=== PATIENT | female | born 1970 | race Caucasian/White ===

== ENCOUNTER 2018-04-28 07:00 | Emergency (ER) | payer SELFPAY ==
[2018-04-28] MEDS ORDERED: 0.9 % SODIUM CHLORIDE 1,000 ML IV ONE (07:11)
[2018-04-28] MEDS ORDERED: ONDANSETRON HCL/PF 4 MG/ 2ML VIAL IVP ONE (07:11)
--- NOTE | 2018-04-28 07:16 | ED Physician Documentation ---
General Adult - HISTORIAN Historian: patient, paramedics - HPI Stated Complaint: anxiety Chief Complaint: General Adult Additional Information: Six hours of anxiety, rapid heart rate. HX anxiety attacks. She has tried walking w/o relief. Nauseated. 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 No urine output since4 0300. HX Guillain-[place], 2013?, takes methadone for fibromyalgia. Used to take Xanax but stopped ehn she had Guillain-[place]. Fourth ER visit for anxiety in 4 months. Will be home tonight in [place], [place], so she can see her primary soon. No other modifying factors or associated signs. - ROS CONST: no problems NEURO/PSYCH: anxiety - PAST HX Past History: other (above) Surgeries/Procedures: (x1) Allergies/Adverse Reactions: Allergies Allergy/AdvReac Type Severity Reaction Status Date / Time erythromycin base Allergy Verified 04/28/18 07:16 [From E-Mycin] Home Medications: Ambulatory Orders Medication Instructions Recorded Methadone HCl [Dolophine HCl] 10 mg PO TID 04/28/18 - SOCIAL HX Smoking History: cigarettes (1/2 PPD for 32 years) Alcohol Use: occasionally Drug Use: none (denies. 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 ) - FAMILY HX Family History: No - REVIEWED ASSESSMENTS Nursing Assessment Reviewed: Yes Vitals Reviewed: Yes Progress - Progress Progress: Urine drug screen non-negative for benzos, cocaine, marijuana, methadone. 0810, Feels much better. "Sorry I didn't tell you (about the drugs). ED Results Lab/Radiology - Orders Orders: ED Orders Category Date Time Status CBC/PLATELET/DIFF Routine Lab 04/28/18 Ordered CMP Routine Lab 04/28/18 Ordered DRUG SCREEN URINE MEDICAL ONLY Routine Lab 04/28/18 Ordered ETHANOL REF Stat Lab 04/28/18 Ordered URINALYSIS Routine Lab 04/28/18 Ordered NORMAL SALINE @ 1000 MLS/HR ( 1000ml BOLUS) Med 04/28/18 07:11 Ordered 0.9 % Sodium Chloride [Normal Saline] 1,000 ml IV Q1H Ondansetron HCl/Pf [Zofran 4 mg/2 ml] Med 04/28/18 07:11 Once 4 mg IVP NOW ONE General Adult Physical Exam - PHYSICAL EXAM GENERAL APPEARANCE: moderate distress (anxious, rapid speech) EENT: eye inspection normal, ENT inspection normal, pharynx normal, dry mucous membranes NECK: normal inspection, supple RESPIRATORY: no resp distress, breath sounds normal CVS: reg rate & rhythm, heart sounds normal, no murmur ABDOMEN: soft, no organomegaly, normal bowel sounds, no distension BACK: normal inspection, no CVA tenderness, other (no vertebral tenderness) SKIN: warm/dry, normal color, other (multiple tattoos) EXTREMITIES: non-tender, no evidence of injury NEURO: CN's nml as tested, motor nml, sensation nml, cognition normal Discharge Clincal Impression: Anxiety, Drug use Referrals: Primary Doctor,No [Primary Care Provider] - 2 Days Additional Instructions: Follow up with your provider in the next 10 days. Condition: Good Disposition: 01 HOME, SELF-CARE Decision to Admit: NO Decision Time: 08:10
[2018-04-28 07:48] LABS: BASOPHILS % 0.1 (0.0-1.5); EOSINOPHILS % 0.3 % (0.0-6.8); MEAN CORPUSCULAR HEMOGLOBIN 30.5 pg (28.0-34.0); MEAN CORPUSCULAR VOLUME 90.6 fl (80.0-100.0); MONOCYTES % 5.4 % (0.0-11.0); NEUTROPHILS # 6.9 # k/uL (1.4-7.7)
[2018-04-28] MEDS ORDERED: LORazepam 2 MG/ML VIAL IVP ONE (07:48)
[2018-04-28 07:51] LABS: APPEARANCE,URINE CLEAR (CLEAR); COLOR,URINE YELLOW (YELLOW); OCCULT BLOOD,URINE TRACE-INTACT (NEGATIVE)
[2018-04-28 07:53] LABS: eGFR (African) > 60; eGFR (Non-African) > 60
[2018-04-28 07:54] LABS: CANNABINOIDS NON NEGATIVE ng/mL (< 50)
[2018-04-28 07:55] LABS: METHYLENEDIOXYMETHAMPHETAMINE NEGATIVE ng/mL (<500)
[2018-04-28 08:41] VITALS: BP 129/83
[2018-05-01 16:22] LABS: CANNABINOIDS CONFIRMATION 15 ng/mL (<15)
== END 2018-04-28 08:20 | disposition home or self-care (01) ==
LOC: ED 07:00
DX: F41.9 Anxiety disorder, unspecified (principal); F13.90 Sedative, hypnotic, or anxiolytic use, unspecified, uncomplicated; F14.90 Cocaine use, unspecified, uncomplicated; F12.90 Cannabis use, unspecified, uncomplicated; F11.20 Opioid dependence, uncomplicated
CPT/HCPCS: 80053; 80320; 80377; 81002; 85025; J2060; J2405; J7030; 96365; 96375; 99284; G0480; G0481; S1016